=== PATIENT | male | born 2000 | race Two or more races ===

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

== ENCOUNTER 2024-04-19 21:09 | Emergency (ER) | payer MEDICAID ==
[~2024-04-19] VITALS: Ht 175.3 cm; Wt 76.8 kg
[2024-04-19 21:31] VITALS: BP 128/69; PULSE 72; RESP 18; TEMP 98.2
[2024-04-19] MEDS ORDERED: LORA-655 PO (22:42)
[2024-04-19 23:05] VITALS: O2SAT 96
[2024-04-19] MEDS: LORazepam 0.5 MG TAB PO ONE (23:14)
== END 2024-04-19 23:18 | disposition home or self-care (01) ==
LOC: ER 21:09
DX: F41.9 Anxiety disorder, unspecified (principal)

== ENCOUNTER 2024-04-23 20:07 | Emergency (ER) | payer MEDICAID ==
[~2024-04-23] VITALS: Ht 175.3 cm; Wt 86.1 kg
[~2024-04-23 20:07] MED LIST: LORA-655 PO
[2024-04-23] MEDS: LORazepam 0.5 MG TAB PO ONE (21:32)
[2024-04-23] MEDS: KETOROLAC TROMETH 60MG/2ML VIAL IM ONE (21:33)
[2024-04-23 22:31] LABS: Basophils # (auto) 0 10 ^3/uL (0-0.2); Basophils % (auto) 0.5 % (0.0-2.0); Eosinophils # (auto) 0.1 10 ^3/uL (0-0.8); Eosinophils % (auto) 1.9 % (0.0-7.0); Hematocrit 46.7 % (41.0-53.0); Hemoglobin 15.9 g/dL (13.5-17.5); Lymphocytes % (auto) 26.4 % (10.0-50.0); Mean Corpuscular Hemoglobin 30.5 pg (28.0-32.0); Mean Corpuscular Hgb Conc. 34.1 g/dL (32.0-36.0); Mean Corpuscular Volume 89.5 fL (80.0-100.0); Monocytes # (auto) 0.6 10 ^3/uL (0-1.3); Neutrophils # (auto) 4.9 10 ^3/uL (1.6-8.6); Neutrophils % (auto) 63.2 % (37.0-80.0); Nucleated Red Blood Cells % 0.4 %; Red Blood Cells 5.21 10^6/uL (4.5-5.90); Red Cell Distribution Width 13.3 % (11.8-14.3); White Blood Cell 7.7 10^3/uL (4.4-10.8)
[2024-04-23 22:44] LABS: Chloride 104 mmol/L (98-107); Potassium 3.7 mmol/L (3.5-5.1); Sodium 137 mmol/L (136-145)
[2024-04-23 22:45] LABS: Anion Gap 4 (5-15); Calcium 10.1 mg/dL (8.7-10.4); Carbon Dioxide 29 mmol/L (20-30)
[2024-04-23 22:50] LABS: BUN/Creatinine Ratio 8.7 (10.0-20.0); Blood Urea Nitrogen 9 mg/dL (9-23); Glucose 86 mg/dL (74-106)
[2024-04-24] MEDS ORDERED: IBUP-1455 PO (00:05)
[2024-04-24 00:32] VITALS: BP 106/75; PULSE 84; RESP 20; TEMP 98.3; O2SAT 98
== END 2024-04-24 00:32 | disposition home or self-care (01) ==
LOC: ER 20:07
DX: R07.89 Other chest pain (principal); F14.90 Cocaine use, unspecified, uncomplicated; Z79.899 Other long term (current) drug therapy
CPT/HCPCS: 36415; 71045; 80048; 83880; 84484; 85025; 93005; 96372; 99285; J1885

== ENCOUNTER 2024-05-13 23:01 | Emergency (ER) | payer MEDICAID ==
[~2024-05-13] VITALS: Ht 175.3 cm; Wt 72.7 kg
[~2024-05-13 23:01] MED LIST changes: +IBUP-1455 PO
[2024-05-13 23:21] LABS: Basophils # (auto) 0 10 ^3/uL (0-0.2); Basophils % (auto) 0.3 % (0.0-2.0); Eosinophils # (auto) 0 10 ^3/uL (0-0.8); Eosinophils % (auto) 0.2 % (0.0-7.0); Hematocrit 46.3 % (41.0-53.0); Hemoglobin 15.9 g/dL (13.5-17.5); Lymphocytes # (auto) 1.3 10 ^3/uL (0.4-5.4); Lymphocytes % (auto) 7.2 % (10.0-50.0); Mean Corpuscular Hemoglobin 31.1 pg (28.0-32.0); Mean Corpuscular Hgb Conc. 34.2 g/dL (32.0-36.0); Mean Corpuscular Volume 90.7 fL (80.0-100.0); Monocytes # (auto) 1.4 10 ^3/uL (0-1.3); Monocytes % (auto) 7.9 % (0.0-12.0); Neutrophils # (auto) 15.4 10 ^3/uL (1.6-8.6); Neutrophils % (auto) 84.4 % (37.0-80.0); Red Blood Cells 5.11 10^6/uL (4.5-5.90); Red Cell Distribution Width 13.8 % (11.8-14.3); White Blood Cell 18.3 10^3/uL (4.4-10.8)
[2024-05-13 23:36] LABS: Alanine Aminotransferase 31 U/L (7-40); Albumin 4.4 g/dL (3.2-4.8); Alkaline Phosphatase 63 U/L (46-116); Anion Gap 6 (5-15); Aspartate Aminotransferase 22 U/L (13-40); BUN/Creatinine Ratio 6.5 (10.0-20.0); Bilirubin, Total 0.7 mg/dL (0.2-1.0); Blood Urea Nitrogen 6 mg/dL (9-23); Calcium 9.9 mg/dL (8.7-10.4); Carbon Dioxide 26 mmol/L (20-30); Chloride 106 mmol/L (98-107); Glucose 102 mg/dL (74-106); Potassium 3.6 mmol/L (3.5-5.1); Sodium 138 mmol/L (136-145); Total Protein 7.3 g/dL (5.7-8.2)
[2024-05-14] MEDS: IBUPROFEN 800 MG TAB PO ONE (00:48)
[2024-05-14] MEDS ORDERED: IBUP-1455 PO (01:55)
[2024-05-14] MEDS ORDERED: LEVO500T91 PO (01:55)
[2024-05-14] MEDS: levoFLOXacin 250 MG TAB PO ONE (02:21)
[2024-05-14 02:24] VITALS: BP 129/85; TEMP 98.1
[2024-05-14 02:29] VITALS: PULSE 76; RESP 20; O2SAT 98
== END 2024-05-14 02:37 | disposition home or self-care (01) ==
LOC: ER 23:01
DX: R07.89 Other chest pain (principal); F41.9 Anxiety disorder, unspecified; F14.90 Cocaine use, unspecified, uncomplicated; Z79.899 Other long term (current) drug therapy
CPT/HCPCS: 36415; 71045; 80053; 83880; 84484; 85025; 93005

== ENCOUNTER 2024-08-08 22:35 | Emergency (ER) | payer MEDICAID ==
[~2024-08-08] VITALS: Ht 175.3 cm; Wt 78.4 kg
[~2024-08-08 22:35] MED LIST changes: +LEVO500T91 PO
[2024-08-08 22:54] VITALS: RESP 16; O2SAT 96
[2024-08-09] MEDS: IBUPROFEN 600 MG TAB PO ONE (02:30)
[2024-08-09 02:45] VITALS: BP 112/74; PULSE 71; TEMP 98
== END 2024-08-09 03:07 | disposition home or self-care (01) ==
LOC: ER 22:35
DX: S93.492A Sprain of other ligament of left ankle, initial encounter (principal); F41.9 Anxiety disorder, unspecified; F14.90 Cocaine use, unspecified, uncomplicated; Z79.899 Other long term (current) drug therapy; X58.XXXA Exposure to other specified factors, initial encounter; Y93.02 Activity, running; Y92.89 Other specified places as the place of occurrence of the external cause; Y99.8 Other external cause status
CPT/HCPCS: 29515; 73610